=== PATIENT | male | born 1995 | race Caucasian/White ===

== ENCOUNTER 2020-09-06 04:11 | Emergency (ER) | payer SELFPAY ==
[~2020-09-06] VITALS: Ht 177.8 cm; Wt 128.4 kg
== END 2020-09-06 04:30 | disposition home or self-care (01) ==
LOC: ER 04:15
DX: S39.012A Strain of muscle, fascia and tendon of lower back, initial encounter (principal); I10 Essential (primary) hypertension; E78.5 Hyperlipidemia, unspecified; F41.9 Anxiety disorder, unspecified; F84.0 Autistic disorder
CPT/HCPCS: 99282

== ENCOUNTER 2021-02-06 16:47 | Emergency (ER) | payer MEDICARE ==
[~2021-02-06] VITALS: Ht 177.8 cm; Wt 128.4 kg
[2021-02-06 18:10] VITALS: BP 149/99
== END 2021-02-06 18:16 | disposition home or self-care (01) ==
LOC: ER 17:25
DX: S39.012A Strain of muscle, fascia and tendon of lower back, initial encounter (principal); M25.561 Pain in right knee; X50.0XXA Overexertion from strenuous movement or load, initial encounter; I10 Essential (primary) hypertension; F41.9 Anxiety disorder, unspecified; E78.5 Hyperlipidemia, unspecified; F84.0 Autistic disorder; F90.9 Attention-deficit hyperactivity disorder, unspecified type
CPT/HCPCS: 99282

== ENCOUNTER 2021-04-17 07:40 | Emergency (ER) | payer MEDICAID ==
[~2021-04-17] VITALS: Ht 177.8 cm; Wt 128.4 kg
[2021-04-17] MEDS ORDERED: IBUPROFEN600 MG PO (08:48)
== END 2021-04-17 08:55 | disposition home or self-care (01) ==
LOC: ER 07:46
DX: M25.561 Pain in right knee (principal); I10 Essential (primary) hypertension; E78.5 Hyperlipidemia, unspecified; F41.9 Anxiety disorder, unspecified; F84.0 Autistic disorder; F90.9 Attention-deficit hyperactivity disorder, unspecified type
CPT/HCPCS: 99283